=== PATIENT | male | born 1950 | race Asian ===

== ENCOUNTER 2020-09-29 15:25 | Emergency (ER) | payer MEDICARE ==
[~2020-09-29] VITALS: Ht 170.2 cm; Wt 63.5 kg
== END 2020-09-29 16:47 | disposition home or self-care (01) ==
LOC: ER 15:34
DX: R50.9 Fever, unspecified (principal)
CPT/HCPCS: 99282; U0002

== ENCOUNTER 2024-08-19 06:25 | Observation (INO) | payer MEDICARE ==
[2024-08-15 14:45] LABS: BASOPHILS % 0.4 % (0.0-1.0); EOSINOPHILS % 2.1 % (0.0-6.0); LYMPHOCYTES % 37.4 % (18.0-39.1); MONOCYTES % 8.9 % (4.4-11.3); NEUTROPHILS % 51.0 % (38.7-80.0); RED CELL DISTRIBUTION WIDTH 12.2 % (11.7-14.4)
[2024-08-15 15:12] LABS: EST GLOMERULAR FILTRATION RATE 33.0 ML/MIN (>=60)
[~2024-08-19] VITALS: Ht 170.2 cm; Wt 66.2 kg
[~2024-08-19 06:25] MED LIST: BYSTOLIC5 MG PO; FLOMAX0.4 MG PO; LOSARTAN POTASS25 MG PO; NORVASC5 MG PO
[2024-08-19] MEDS ORDERED: LIDOCAINE HCL 2% LOCAL INJ 5 ML SDV VIAL INJ ONE (08:14)
[2024-08-19] MEDS ORDERED: FENTANYL CITRATE/PF 100MCG/2 ML INJ ONE (08:14)
[2024-08-19] MEDS ORDERED: DEXAMETHASONE SOD PHOS INJ 4 MG/ML SDV ONE (08:15)
[2024-08-19] MEDS ORDERED: PROPOFOL IV EMULSION 10 MG/ML 20 ML VIAL ONE (08:15)
[2024-08-19] MEDS ORDERED: ONDANSETRON HCL INJ 2MG/ML 2ML 2 MG/ML VIAL ONE (08:15)
[2024-08-19] MEDS ORDERED: ACETAMINOPHEN 1000 MG/100 ML 100 ML IV ONE (09:08)
[2024-08-19] MEDS ORDERED: SEVOFLURANE INHAL SOLN 250 ML PEN BTL ONE (09:08)
[2024-08-19] MEDS ORDERED: EPHEDRINE SULFATE INJ 50 MG/ML VIAL ONE (09:21)
[2024-08-19] MEDS ORDERED: ONDANSETRON HCL INJ 2MG/ML 2ML 2 MG/ML VIAL IV PRN (10:30)
[2024-08-19] MEDS ORDERED: HYDROCODONE/APAP 7.5MG-325MG 1 EA TAB PO PRN (10:30)
[2024-08-19] MEDS ORDERED: ACETAMINOPHEN 1000 MG/100 ML IV PRN (10:30)
[2024-08-19] MEDS ORDERED: NALOXONE HCL INJ 0.4 MG/ML AMP IV PRN (10:30)
[2024-08-19] MEDS: HYDROMORPHONE 0.2MG/ML-SOD CHL 30ML PCA SYRINGE IV PRN (10:55)
[2024-08-19 12:43] VITALS: BP 120/66; PULSE 14; RESP 14; TEMP 97.1; O2SAT 100
[2024-08-19 12:48] VITALS: BP 120/66; PULSE 14; RESP 14; TEMP 97.1; O2SAT 100
[2024-08-19] MEDS: LACTATED RINGER'S 1,000 ML ONE (12:49)
[2024-08-19] MEDS: SODIUM CHLORIDE 0.9% 1000ML 1,000 ML IV SCH (15:00)
[2024-08-19 15:45] VITALS: BP 134/67; PULSE 79; RESP 19; TEMP 97.5; O2SAT 100
[2024-08-20] MEDS ORDERED: AMLODIPINE BESYLATE 5 MG TAB PO SCH (09:00)
[2024-08-20] MEDS ORDERED: NEBIVOLOL HCL 2.5 MG TABLET PO SCH (09:00)
[2024-08-20] MEDS ORDERED: LOSARTAN POTASSIUM 25 MG TAB PO SCH (09:00)
[2024-08-20] MEDS ORDERED: TAMSULOSIN HCL 0.4 MG CAP PO SCH (09:00)
== END 2024-08-19 20:37 | disposition home or self-care (01) ==
LOC: OR 06:25 → PACU V 10:22 → MED/SURG 12:35 → UNDODISOB 20:37
PROVIDERS: ADMIT Surgery; ATTEND Surgery
DX: K64.8 Other hemorrhoids (principal); K62.3 Rectal prolapse; Z01.810 Encounter for preprocedural cardiovascular examination; Z01.812 Encounter for preprocedural laboratory examination; Z01.818 Encounter for other preprocedural examination; I10 Essential (primary) hypertension; N40.0 Benign prostatic hyperplasia without lower urinary tract symptoms
CPT/HCPCS: 36415; 45541; 46260; 71046; 80053; 85025; 88304; 93005; G0378; J0131; J0694; J1100; J2003; J2405; J2704; J3010; J7030; J7121